=== PATIENT | male | born 1935 | race Hispanic/Latino ===

== ENCOUNTER 2017-09-30 17:16 | Emergency (ER) | payer MEDICARE, OTHER ==
[~2017-09-30 17:16] MED LIST: ASCO500T10 PO; CHOL500045 PO; DILT240C96 PO; ESOM40CA PO; FELO5TAB31 PO; FLUT16H NASAL; HYDR25TA PO; IPRA4AER IH; METF500T6 PO; METO50TA18 PO
[2017-09-30 17:42] LABS: BASOPHILS % (AUTO) 3.7 % (0.0-5.0); EOSINOPHILS % (AUTO) 1.6 % (0.0-8.0); HEMATOCRIT 41.4 % (42-54); LYMPHOCYTES % (AUTO) 35.4 % (21.0-51.0); MEAN CORPUSCULAR HEMOGLOBIN 32.6 pg (27.0-33.0); MEAN CORPUSCULAR VOLUME 92.9 fL (79-99); MONOCYTES % (AUTO) 6.2 % (3.0-13.0); NEUTROPHILS % (AUTO) 53.1 % (40.0-77.0); PLATELET COUNT (AUTO) 214 K/uL (130-400); RED BLOOD CELL COUNT(AUTO) 4.45 MIL/uL (4.50-6.20); RED CELL DISTRIBUTION WIDTH 13.3 % (11.0-15.5)
[2017-09-30 17:52] LABS: CREATININE 1.2 mg/dL (0.5-1.5)
[2017-09-30 17:54] LABS: INR 0.96 (0.85-1.15); PARTIAL THROMBOPLASTIN TIME 28.7 SEC (26.3-35.5); PROTHROMBIN TIME 10.1 SEC (9.6-11.6)
[2017-09-30 17:56] LABS: ALBUMIN 3.9 g/dL (3.5-5.0); BILIRUBIN,TOTAL 0.3 mg/dL (0.2-1.0); TOTAL PROTEIN, SERUM 7.9 g/dL (6.0-8.3)
[2017-09-30] MEDS ORDERED: NITROGLYCERIN 0.4 MG SL TAB SL ONE (18:03)
== END 2017-09-30 21:07 | disposition left against medical advice (07) ==
LOC: EDH 17:16
DX: R07.9 Chest pain, unspecified (principal); R06.02 Shortness of breath; R60.0 Localized edema; E11.9 Type 2 diabetes mellitus without complications; E78.5 Hyperlipidemia, unspecified; I10 Essential (primary) hypertension; Z90.49 Acquired absence of other specified parts of digestive tract; Z87.891 Personal history of nicotine dependence
CPT/HCPCS: 36415; 71045; 80053; 84484; 85025; 85610; 85730; 93005; 99291

== ENCOUNTER 2017-12-11 07:50 | Observation (INO) | payer MEDICARE, OTHER ==
[2017-12-10 00:05] VITALS: BP 128/68
[~2017-12-11] VITALS: Ht 162.6 cm; Wt 69.6 kg
[2017-12-11 08:04] LABS: BASOPHILS % (AUTO) 2.6 % (0.0-5.0); EOSINOPHILS % (AUTO) 1.7 % (0.0-8.0); HEMATOCRIT 42.3 % (42-54); LYMPHOCYTES % (AUTO) 39.7 % (21.0-51.0); MEAN CORPUSCULAR HEMOGLOBIN 32.2 pg (27.0-33.0); MEAN CORPUSCULAR HGB CONC 34.3 g/dL (32.0-36.0); MEAN CORPUSCULAR VOLUME 93.9 fL (79-99); MONOCYTES % (AUTO) 7.5 % (3.0-13.0); NEUTROPHILS % (AUTO) 48.5 % (40.0-77.0); PLATELET COUNT (AUTO) 207 K/uL (130-400); RED BLOOD CELL COUNT(AUTO) 4.51 MIL/uL (4.50-6.20); RED CELL DISTRIBUTION WIDTH 13.4 % (11.0-15.5); WHITE BLOOD COUNT (AUTO) 6.2 K/uL (4.8-10.8)
[2017-12-11] MEDS ORDERED: NITROGLYCERIN 1GM/1 INCH PACKET TD ONE (08:11)
[2017-12-11 08:14] LABS: CREATININE 1.1 mg/dL (0.5-1.5)
[2017-12-11 08:17] LABS: INR 0.99 (0.85-1.15); PARTIAL THROMBOPLASTIN TIME 29.1 SEC (26.3-35.5); PROTHROMBIN TIME 10.4 SEC (9.6-11.6)
[2017-12-11 08:30] LABS: ALBUMIN 3.7 g/dL (3.5-5.0); BILIRUBIN,TOTAL 0.5 mg/dL (0.2-1.0); CREATINE KINASE MB 1.3 ng/mL (0.5-3.6); TOTAL PROTEIN, SERUM 7.6 g/dL (6.0-8.3)
[2017-12-11 08:40] LABS: B-TYPE NATRIURETIC PEPTIDE 14 pg/mL (0-100)
[2017-12-11 14:32] LABS: CREATINE KINASE MB 0.9 ng/mL (0.5-3.6); CREATINE KINASE, TOTAL 63 U/L (21-232); MYOGLOBIN 46 ng/mL (10-92); TROPONIN I < 0.04 ng/mL (0.00-0.06)
[2017-12-11] MEDS ORDERED: GUAIFENESIN-DM 200/20 MG 10 ML PO PRN (15:15)
[2017-12-11] MEDS ORDERED: HYDRALAZINE HCL 20 MG/ML VIAL IV PRN (15:15)
[2017-12-11] MEDS ORDERED: ACETAMINOPHEN 325 MG TAB PO PRN (15:15)
[2017-12-11] MEDS ORDERED: LACTULOSE 20 GM/30 ML UDCUP PO PRN (15:15)
[2017-12-11] MEDS ORDERED: ONDANSETRON HCL MDV 20ML 2 MG/ML VIAL IV PRN (15:15)
[2017-12-11] MEDS ORDERED: NITROGLYCERIN 0.4 MG SL TAB SL PRN (17:00)
[2017-12-11] MEDS ORDERED: ASPIRIN 81MG TAB.CHEW PO SCH (17:00)
[2017-12-11 19:25] VITALS: BP 146/76
[2017-12-11 22:49] LABS: CREATINE KINASE MB 0.7 ng/mL (0.5-3.6); CREATINE KINASE, TOTAL 56 U/L (21-232); MYOGLOBIN 43 ng/mL (10-92); TROPONIN I < 0.04 ng/mL (0.00-0.06)
[2017-12-12 04:20] VITALS: BP 135/61
[2017-12-12 04:38] LABS: HEMATOCRIT 36.9 % (42-54); MEAN CORPUSCULAR HEMOGLOBIN 33.2 pg (27.0-33.0); MEAN CORPUSCULAR HGB CONC 35.5 g/dL (32.0-36.0); MEAN CORPUSCULAR VOLUME 93.3 fL (79-99); PLATELET COUNT (AUTO) 205 K/uL (130-400); RED BLOOD CELL COUNT(AUTO) 3.95 MIL/uL (4.50-6.20); RED CELL DISTRIBUTION WIDTH 13.2 % (11.0-15.5)
[2017-12-12 04:55] LABS: CREATININE 1.1 mg/dL (0.5-1.5); MAGNESIUM 1.9 mg/dL (1.80-2.40); POTASSIUM 3.9 mmol/L (3.5-5.1)
[2017-12-12 05:07] LABS: HEMOGLOBIN A1C 6.8 % (4.0-6.0)
[2017-12-12 08:13] VITALS: BP 140/70
[2017-12-12] MEDS ORDERED: ENOXAPARIN SODIUM 40 MG/0.4 ML SYRINGE SQ SCH (09:00)
[2017-12-12] MEDS ORDERED: PANTOPRAZOLE SODIUM 40 MG TABLET.DR PO SCH (09:00)
[2017-12-12] MEDS ORDERED: ASPIRIN 81MG TAB.CHEW PO SCH (09:00)
[2017-12-12 11:59] VITALS: BP 156/81
[2017-12-12] MEDS ORDERED: FLUTICASONE PROPIONATE 50MCG/SPRAY 16 GM BOTTLE NS SCH (12:00)
[2017-12-12 16:21] VITALS: BP 149/79
[2017-12-12] MEDS ORDERED: ATOR10TA PO (16:35)
[2017-12-12] MEDS ORDERED: ASPI-1005 PO (16:35)
[2017-12-12] MEDS ORDERED: METF850T PO (16:35)
[2017-12-12] MEDS ORDERED: METFORMIN HCL 850 MG TABLET PO SCH (17:00)
[2017-12-12] MEDS ORDERED: METOPROLOL TARTRATE 50 MG TAB PO SCH (21:00)
[2017-12-13] MEDS ORDERED: ASCORBIC ACID 500 MG TAB PO SCH (09:00)
[2017-12-13] MEDS ORDERED: IPRATROPIUM/ALBUTEROL SULFATE 3 ML SOLUTION IH SCH (09:00)
[2017-12-13] MEDS ORDERED: AMLODIPINE BESYLATE 5 MG TAB PO SCH (09:00)
[2017-12-13] MEDS ORDERED: **HM** VIT D3 5000 UNITS PO SCH (09:00)
[2017-12-13] MEDS ORDERED: DILTIAZEM HCL 120 MG CAP.SR.24H PO SCH (09:00)
[2017-12-13] MEDS ORDERED: HYDROCHLOROTHIAZIDE 25 MG TABLET PO SCH (09:00)
== END 2017-12-12 19:10 | disposition home or self-care (01) ==
LOC: EDH 07:50 → EDHIP 10:08 → 3CH 20:12
PROVIDERS: ADMIT Internal Medicine Nephrology; ATTEND Internal Medicine Nephrology
DX: R07.89 Other chest pain (principal); E11.9 Type 2 diabetes mellitus without complications; I10 Essential (primary) hypertension; E78.5 Hyperlipidemia, unspecified; Z82.49 Family history of ischemic heart disease and other diseases of the circulatory system; Z83.3 Family history of diabetes mellitus; Z79.899 Other long term (current) drug therapy
CPT/HCPCS: 36415 ×2; 71045 ×2; 80048; 80053; 80061; 82550 ×3; 82553 ×3; 82948 ×4; 83036; 83735; 83874 ×3; 83880; 84484 ×3; 85025; 85027; 85610; 85730; 93005 ×2; 94664; 96372; 99285; G0378 ×33; J1650

== ENCOUNTER → 2025-03-08 | Outpatient (CLI) | payer OTHER ==
[~2025-03-08] MED LIST changes: +ASPI-1005 PO; +ATOR10TA PO; -FELO5TAB31 PO; +FELO5TAB48 PO; -METF500T6 PO; +METF850T PO
--- NOTE | 2025-03-09 07:10 | HMCIMG ---
EXAMINATION: SOFT TISSUE ULTRASOUND OF THE LEFT GROIN. CLINICAL HISTORY: Palpable swelling. COMPARISON: None. TECHNIQUE: Transverse and longitudinal images were obtained in the left groin. FINDINGS: There is a lymph node lesion that measures 2.5 x 3.6 x 2.8 cm in craniocaudal, AP, and transverse dimensions respectively in the left groin. There is increased vascularity. IMPRESSION: Left groin lymphadenopathy. Recommend CT with contrast. /[place]
== END | disposition home or self-care (01) ==
LOC: RAH 14:24
PROVIDERS: ATTEND Internal Medicine Medical Oncology
DX: R22.42 Localized swelling, mass and lump, left lower limb (principal); C43.71 Malignant melanoma of right lower limb, including hip
CPT/HCPCS: 76882

== ENCOUNTER → 2025-03-28 | Outpatient (CLI) | payer OTHER ==
[2025-03-28 10:59] LABS: INR 0.99 (0.85-1.15)
--- NOTE | 2025-03-28 11:40 | NUR ---
ULTRASOUND GUIDED LEFT GROIN LYMPH NODE BX PROCEDURE PERFORMED BY DR. Gaurav HARE. PUNCTURE SITE LEFT GROIN AND PATIENT TOLERATED PROCEDURE WELL. SPECIMENS X5 COLLECTED AND SENT TO LAB. END OF PROCEDURE AT 1125. BIOPSY NEEDLE REMOVED AND DRESSING APPLIED- NO BLEEDING NOTED. DISCHARGE INSTRUCTIONS GIVEN TO PATIENT AND VERBALIZED UNDERSTANDING. DISCHARGED VIA AMBULATORY- ALERT AND ORIENTED WITH NO C/O PAIN.
--- NOTE | 2025-03-28 13:10 | HMCIMG ---
US BIOPSY LYMPHNODE HISTORY: LT GROIN LYMPH NODE 2.5 X 3.6 X 2.8 CM TECHNIQUE: Images from prior studies reviewed. Informed consent was obtained after explaining the procedure and potential complications to the patient. Time out performed. Patient was placed on supine position. Patient proximal medial thigh was was prepped and draped in sterile fashion. Local anesthesia was applied and under ultrasound guidance, a needle introducer was advanced through the abdominal wall and into a mass. Then, 4 passes were made with an 18-gauge Bard gun. . Sterile dressing applied. Completion images reveal no hemorrhage. Patient tolerated the procedure well and was discharged from the department in good condition. Sample sent to pathology in formalin and RPMI. . Blood loss:< 5 mL Complications: None Medications: None IMPRESSION: Successful ultrasound-guided core biopsy of medial aspect of the left thigh mass.
== END | disposition home or self-care (01) ==
LOC: RAH 09:28
PROVIDERS: ATTEND Internal Medicine Medical Oncology
DX: R59.0 Localized enlarged lymph nodes (principal); C79.2 Secondary malignant neoplasm of skin; C43.71 Malignant melanoma of right lower limb, including hip; E11.9 Type 2 diabetes mellitus without complications; Z79.01 Long term (current) use of anticoagulants; Z79.84 Long term (current) use of oral hypoglycemic drugs; Z79.899 Other long term (current) drug therapy
CPT/HCPCS: 36415; 38505; 76942; 85610; 85730; 88184; 88185; 88188; 88305